=== PATIENT | female | born 1965 | race Caucasian/White ===

== ENCOUNTER 2024-10-30 15:42 | Emergency (ER) | payer OTHER, MEDICARE ==
[~2024-10-30] VITALS: Ht 165.1 cm; Wt 59.0 kg
[2024-10-30] MEDS ORDERED: SODIUM CHLORIDE 0.9% 1,000 ML IV ONE (16:15)
[2024-10-30] MEDS ORDERED: ceFAZolin sodium 1 GM in SYRINGE INFUSION 10 ML IV ONE (16:15)
[2024-10-30] MEDS ORDERED: ceFAZolin sodium/sodium chlor 10 ML IV ONE (16:20)
[2024-10-30] MEDS ORDERED: Lidocaine Hydrochloride 2% 10 ML AMP SC ONE (16:50)
[2024-10-30] MEDS ORDERED: Ondansetron Hydrochloride 4 MG/2 ML VIAL IV ONE (17:25)
[2024-10-30] MEDS ORDERED: LIDOCAINE HCL/EPINEPHRINE 50 ML VIAL ONE (17:41)
[2024-10-30] MEDS ORDERED: METRONIDAZOLE500 M1 PO (18:58)
[2024-10-30] MEDS ORDERED: CEFUROXIME AXE500 MG PO (18:58)
[2024-10-30] MEDS ORDERED: Bacitracin Zinc 14 GM TUBE T ONE (19:05)
[2024-10-30] MEDS ORDERED: PERCOCET 5-3251 EACH PO (19:43)
== END 2024-10-30 20:02 | disposition home or self-care (01) ==
LOC: ED 15:42
DX: S01.81XA Laceration without foreign body of other part of head, initial encounter (principal); Z88.0 Allergy status to penicillin; W54.0XXA Bitten by dog, initial encounter; Y93.89 Activity, other specified; Y92.89 Other specified places as the place of occurrence of the external cause; Y99.8 Other external cause status